=== PATIENT | male | born 2000 | race Caucasian/White ===

== ENCOUNTER 2019-09-02 20:26 | Emergency (ER) | payer OTHER, MEDICAID ==
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
[2019-09-02] MEDS: Diph,Pert(Acell),Tet Vac 0.5 ML SYR IM ONE (22:08)
[2019-09-02] MEDS: AMOXICILLIN/POTASSIUM CLAV 875MG/125MG TABLET PO ONE (22:46)
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
== END 2019-09-02 22:52 | disposition home or self-care (01) ==
LOC: ER 20:26
DX: S90.851A Superficial foreign body, right foot, initial encounter (principal); L08.9 Local infection of the skin and subcutaneous tissue, unspecified; F17.210 Nicotine dependence, cigarettes, uncomplicated; W34.010A Accidental discharge of airgun, initial encounter
CPT/HCPCS: 10120; 90715; 96372; 99283; 99284